=== PATIENT | female | born 1975 | race Caucasian/White ===

== ENCOUNTER 2020-10-02 10:35 | Outpatient (REF) | payer BC, SELFPAY ==
[2020-10-02 14:10] LABS: Hemoglobin 14.2 g/dl (12.0-16.0); Mean Corpuscular HGB Conc 33.8 g/dl (31.0-35.0); Mean Corpuscular Hemoglobin 29.9 pg (27.0-33.0); Mean Corpuscular Volume 88.4 fL (80-98); Mean Platelet Volume 11.4 fL (9.4-12.3); Platelet Count 313 X10*3/uL (160-400); Red Blood Count 4.75 X10*6/uL (4.20-5.50); Red Cell Distribution Width 12.4 % (11.0-16.0); White Blood Count 9.2 X10*3/uL (4.8-10.8)
[2020-10-02 14:32] LABS: Alanine Aminotransferase 13 U/L (0-31); Albumin Level 4.7 g/dL (3.5-5.0); Alkaline Phosphatase 62 U/L (39-117); Anion Gap 13 (12-20); Aspartate Amino Transferase 18 U/L (5-31); Bilirubin Total 0.7 mg/dL (0.0-1.0); Blood Urea Nitrogen 12 mg/dL (9-16); Calcium 9.1 mg/dL (8.4-10.2); Carbon Dioxide 24 mmol/L (22-29); Chloride 106 mmol/L (96-108); Cholesterol 191 mg/dL; Estimated Glomerular Filt Rate > 60; Glucose Fasting 88 mg/dL (60-99); HDL Cholesterol 42 mg/dL; LDL Cholesterol Calculated 119 mg/dl; Potassium 4.5 mmol/l (3.3-5.1); Sodium 138 mmol/L (135-145); Total Protein 7.6 g/dL (6.5-8.0); Triglycerides 154 mg/dL
[2020-10-02 14:38] LABS: Glucose Urine UA NEG (NEG); Leukocyte Esterase Urine 2+ (NEG); Nitrite Urine NEG (NEG); PH 6.5 (5.0-8.0); Urine Blood TRACE (NEG); Urine Ketones NEG (NEG); Urine Protein NEG (NEG-TRACE)
[2020-10-02 14:42] LABS: Appearance Urine CLOUDY; Color Urine YELLOW
[2020-10-02 14:52] LABS: TSH reflex Free T4 4.82 mIU/mL (0.32-4.0)
[2020-10-02 15:09] LABS: RBC Urine 0 /HPF (0); WBC Urine 50-75 /HPF (0-4)
[2020-10-02 15:10] LABS: Bacteria Urine 2+ /LPF; Mucus Urine 2+ /LPF; Squamous Epithelial Cell Urine 2+ /LPF; WBC Clumps Urine NOTED
[2020-10-02 15:57] LABS: Free T4 (Free Thyroxine) 1.08 ng/dL (0.71-1.85)
== END 2020-10-02 10:36 | disposition home or self-care (01) ==
LOC: HO.HMGCLDS 10:35
PROVIDERS: PCP Internal Medicine; Visit Provider Internal Medicine
DX: Z00.00 Encounter for general adult medical examination without abnormal findings (principal)
CPT/HCPCS: 36415; 80053; 80061; 81001; 84439; 84443; 85027

== ENCOUNTER 2021-10-03 09:38 | Outpatient (REF) | payer BC, SELFPAY ==
[2021-10-03 11:31] LABS: Appearance Urine HAZY; Color Urine YELLOW; Glucose Urine UA NEG (NEG); Leukocyte Esterase Urine NEG (NEG); Nitrite Urine NEG (NEG); Urine Blood NEG (NEG); Urine Ketones NEG (NEG); Urine Protein NEG (NEG-TRACE)
[2021-10-03 11:35] LABS: Hematocrit 39.7 % (37.0-47.0); Hemoglobin 13.6 g/dl (12.0-16.0); Mean Corpuscular HGB Conc 34.3 g/dl (31.0-35.0); Mean Corpuscular Hemoglobin 29.4 pg (27.0-33.0); Mean Corpuscular Volume 85.7 fL (80.0-98.0); Mean Platelet Volume 11.6 fL (9.4-12.3); Platelet Count 312 X10*3/uL (160-400); Red Blood Count 4.63 X10*6/uL (4.20-5.50); Red Cell Distribution Width 12.3 % (11.0-16.0); White Blood Count 8.1 X10*3/uL (4.8-10.8)
[2021-10-03 11:53] LABS: Amorphous Sediment Urine 2+ /LPF; Squamous Epithelial Cell Urine 1+ /LPF
[2021-10-03 11:54] LABS: RBC Urine 0-2 /HPF (0); WBC Urine 0-2 /HPF (0-4)
[2021-10-03 12:09] LABS: Alanine Aminotransferase 13 U/L (0-31); Albumin Level 4.4 g/dL (3.5-5.0); Alkaline Phosphatase 67 U/L (39-117); Anion Gap 11 (12-20); Aspartate Amino Transferase 14 U/L (5-31); Bilirubin Total 0.9 mg/dL (0.0-1.0); Blood Urea Nitrogen 11 mg/dL (9-16); Calcium 9.6 mg/dL (8.4-10.2); Carbon Dioxide 24 mmol/L (22-29); Chloride 107 mmol/L (96-108); Cholesterol 182 mg/dL; Estimated Glomerular Filt Rate > 60; Glucose Fasting 96 mg/dL (60-99); HDL Cholesterol 43 mg/dL; LDL Cholesterol Calculated 119 mg/dl; Potassium 4.3 mmol/L (3.3-5.1); Sodium 138 mmol/L (135-145); Total Protein 7.1 g/dL (6.5-8.0); Triglycerides 103 mg/dL
[2021-10-03 12:11] LABS: TSH reflex Free T4 2.71 uIU/mL (0.32-4.0); Vitamin D 25-OH Total 19.6 ng/mL (>30)
[2021-10-03 12:25] LABS: Folate 14.7 ng/mL (> or = 4.0); Vitamin B12 348 pg/mL (200-900)
== END 2021-10-03 09:39 | disposition home or self-care (01) ==
LOC: HO.HMGCLDS 09:38
PROVIDERS: PCP Internal Medicine; Visit Provider Internal Medicine
DX: Z00.00 Encounter for general adult medical examination without abnormal findings (principal); E03.9 Hypothyroidism, unspecified
CPT/HCPCS: 36415; 80053; 80061; 81001; 82306; 82607; 82746; 84443; 85027

== ENCOUNTER 2022-10-04 09:23 | Outpatient (REF) | payer BC, SELFPAY ==
[2022-10-04 11:17] LABS: MANUAL DIFF FLAG NO
[2022-10-04 11:26] LABS: Basophils Percent Auto 0.3 % (0-2); Eosinophils Percent Auto 0.3 % (0-4); Hematocrit 37.8 % (37.0-47.0); Hemoglobin 12.8 g/dl (12.0-16.0); Imm Gran Abs Auto 0.01 X10*3/uL (0.00-0.03); Imm Gran Pct Auto 0.3 % (0.0-0.4); Lymphocytes Absolute Auto 1.5 X10*3/uL (1.2-4.9); Lymphocytes Percent Auto 41.3 % (20-40); Mean Corpuscular HGB Conc 33.9 g/dl (31.0-35.0); Mean Corpuscular Volume 85.5 fL (80.0-98.0); Mean Platelet Volume 12.4 fL (9.4-12.3); Monocytes Absolute Auto 0.5 X10*3/uL (0.1-1.2); Monocytes Percent Auto 12.8 % (2-11); Neutrophils Absolute Auto 1.6 x10*3/uL (2.0-8.3); Platelet Count 216 X10*3/uL (160-400); Red Blood Count 4.42 X10*6/uL (4.20-5.50); White Blood Count 3.5 X10*3/uL (4.8-10.8)
[2022-10-04 11:27] LABS: Appearance Urine Cloudy; Color Urine Yellow; Glucose Urine UA Negative (Negative); Leukocyte Esterase Urine Moderate (2+) (Negative); Nitrite Urine Negative (Negative); Specific Gravity - Urine 1.025 (1.005-1.025); UMIC TRIGGER UA YES; Urine Blood Large (3+) (Negative); Urine Ketones Negative (Negative); Urine Protein Trace mg/dL (Neg-Trace)
[2022-10-04 11:30] LABS: Bacteria Urine None Seen (None Seen); Hyaline Casts Urine 0-2 /LPF (0-2); RBC Urine >20 /HPF (0-2); WBC Urine >50 /HPF (0-5)
[2022-10-04 11:49] LABS: Alanine Aminotransferase 24 U/L (0-31); Albumin Level 4.2 g/dL (3.5-5.0); Alkaline Phosphatase 59 U/L (39-117); Anion Gap 12 (12-20); Aspartate Amino Transferase 24 U/L (5-31); Bilirubin Total 0.6 mg/dL (0.0-1.0); Blood Urea Nitrogen 11 mg/dL (9-16); Calcium 8.7 mg/dL (8.4-10.2); Carbon Dioxide 20 mmol/L (22-29); Chloride 111 mmol/L (96-108); Cholesterol 153 mg/dL; Estimated Glomerular Filt Rate > 60; Glucose Fasting 94 mg/dL (60-99); HDL Cholesterol 39 mg/dL; LDL Cholesterol Calculated 94 mg/dl; Potassium 4.1 mmol/L (3.3-5.1); Sodium 139 mmol/L (135-145); Total Protein 6.6 g/dL (6.5-8.0); Triglycerides 103 mg/dL
[2022-10-04 12:06] LABS: TSH reflex Free T4 1.61 uIU/mL (0.32-4.0); Vitamin D 25-OH Total 24.3 ng/mL (>30)
== END 2022-10-04 09:24 | disposition home or self-care (01) ==
LOC: HO.HMGCLDS 09:23
PROVIDERS: PCP Internal Medicine; Visit Provider Internal Medicine
DX: Z00.00 Encounter for general adult medical examination without abnormal findings (principal); I10 Essential (primary) hypertension; E03.9 Hypothyroidism, unspecified
CPT/HCPCS: 36415; 80053; 80061; 81001; 82306; 84443; 85025

== ENCOUNTER 2023-04-07 09:37 | Outpatient (AMB) | payer BC, SELFPAY ==
[2023-04-07 09:42] VITALS: BP 140/85; PULSE 77; O2SAT 98; BMI 36.0
--- NOTE | 2023-04-07 09:42 | A.OFFPC_ITS ---
Vital Signs 04/07/23 09:42 Height 5 ft 7 in Weight 230 lb BMI 36.0 BP 140/85 H Blood Pressure Location Rt brachial Position Sitting Pulse 77 Pulse Source Pulse Oximeter Pulse Oximetry (%) 98 Oxygen Delivery Method Room Air Intake Visit Reasons: 6 month follow up HTN Intake Note: Pt is here today for 6 months follow up visit on HTN. Allergies No Known Allergies Allergy (Verified 04/07/23 09:46) Medication List - Last Reconciled 04/07/23 by Corin Rea MD amlodipine-benazepril 5-20 mg (Lotrel) 1 cap PO DAILY Synthroid (levothyroxine) 112 mcg PO DAILY NS Tobacco use date assessed: 04/07/23 Dental Screening Dental Screen Date: 04/07/23 Did you have a dental visit in the last 12 months?: Yes Did you have a dental problem in the last 6 months where you did not have access to dental care?: No Was dental information given to patient?: Patient has dentist HPI 6 month follow up HTN HPI Details Pt presents for f/u HTN and hypothyroid. Patient complains of intermittent chest pain left axilla region and dyspnea on exertion when walking. Symptoms resolved with the rest. Patient denies chest pain at night PND orthopnea palpitations. [facility] Medical History Annual physical exam HTN (hypertension) Hypothyroidism Normal Pap smear Surgical History No pertinent past surgical history Family History Father No problems noted. Mother No problems noted. Social History Household Members Other:: Housing: House Alcohol intake: never Patient Tobacco Use Status: Never used Tobacco e-Cigarette/Vaping Use: Never Used Current occupational status: employed Cognitive needs: No Hearing needs: No Vision needs: No Questionnaire Thrive Questionnaire Date Thrive assessed: 10/07/22 ENRIQUE-7 AMB Questionnaire ENRIQUE-7 Date ENRIQUE - 7 assessed: 10/07/22 Source: Developed by Drs. Sancho Hull, Alanna Kong, Oneil Heard and colleagues, with an educational shell from [employer]. Review of Systems Const All systems reviewed & are unremarkable except as noted in HPI and below Reports no additional complaints Eyes Reports no additional complaints ENT Reports no additional complaints Card Reports no additional complaints Resp Reports no additional complaints GI Reports no additional complaints Reports no additional complaints Physical exam (Primary Care) Vital Signs: Last Vital Signs Pulse 77 04/07/23 09:42 BP 118/76 04/07/23 09:42 Pulse Ox 98 04/07/23 09:42 Oxygen Delivery Method Room Air 04/07/23 09:42 BMI result Body Mass Index 36.0 Tobacco/Smoking Status: Tobacco use Status Tobacco use date assessed 04/07/23 04/07/23 09:50 Patient Tobacco Use Status Never used Tobacco 04/07/23 09:50 e-Cigarette/Vaping Use Never Used 04/07/23 09:50 Thrive Assessment: Date of Thrive Assessment Date Thrive assessed 10/07/22 04/07/23 09:50 Const General: no acute distress HENMT Head: Yes normal to inspection Ears: hearing grossly normal bilaterally Face and sinus: Yes normal facial exam Mouth: Normal oral and palatal mucosa present Throat: Yes posterior oropharynx normal Eyes General: appearance normal, both eyes and all related structures Neck Neck: Yes no lymphadenopathy and Yes supple Resp Effort & Inspection: normal respiratory effort Auscultation: clear to auscultation bilaterally Cardio Rhythm: regular rhythm Heart sounds: S1 normal heart sound present and S2 normal heart sound present GI Inspection: Yes normal to inspection Palpation (GI): Soft to palpation Percussion: Yes normal to percussion Auscultation: normal bowel sounds Assessment and Plan Assessment & Plan (1) Hypothyroidism: Code(s): E03.9 - Hypothyroidism, unspecified Plan: cont Synthyroid (2) HTN (hypertension): Code(s): I10 - Essential (primary) hypertension Plan: increase Amlodipine/benazepril 5/40 and check BMP and TSH in 1 week (3) Exertional chest pain: Code(s): R07.9 - Chest pain, unspecified Plan: EKG showed NSR, no ST-T changes, refer for stress test and f/u in 5 weeks Orders: Orders TSH reflex Free T4 1 Week E03.9 - Hypothyroidism, unspecified Basic Metabolic Panel 1 Week I10 - Essential (primary) hypertension CA stress test Today R07.9 - Chest pain, unspecified UA w Microscopic 1 Week I10 - Essential (primary) hypertension Medications: New amlodipine-benazepril 5-40 mg 1 cap PO DAILY 90 caps 0RF Discontinued amlodipine-benazepril 5-20 mg (Lotrel) Discontinued Reason: Doctor's Order 1 cap PO DAILY 90 caps 3RF Coding Level of Care Code Est Pt Level 4 (35949) Diagnoses Hypothyroidism E03.9 HTN (hypertension) I10 Exertional chest pain R07.9
== END 2023-04-07 11:22 | disposition home or self-care (01) ==
PROVIDERS: Visit Provider Internal Medicine
DX: E03.9 Hypothyroidism, unspecified (principal); I10 Essential (primary) hypertension; R07.9 Chest pain, unspecified
CPT/HCPCS: 99214

== ENCOUNTER 2023-04-30 12:41 | Outpatient (REF) | payer BC, SELFPAY ==
[2023-04-30 16:52] LABS: Anion Gap 11 (12-20); Blood Urea Nitrogen 11 mg/dL (9-16); Calcium 9.6 mg/dL (8.4-10.2); Carbon Dioxide 23 mmol/L (22-29); Chloride 109 mmol/L (96-108); Estimated Glomerular Filt Rate > 60; Glucose Random 79 mg/dL (60-115); Potassium 4.2 mmol/L (3.3-5.1); Sodium 139 mmol/L (135-145)
[2023-04-30 16:59] LABS: TSH reflex Free T4 3.91 uIU/mL (0.32-4.0)
[2023-04-30 17:59] LABS: Appearance Urine Cloudy; Color Urine Yellow; Glucose Urine UA Negative (Negative); Leukocyte Esterase Urine Small (1+) (Negative); Nitrite Urine Negative (Negative); PH 7.5 (5.0-9.0); Specific Gravity - Urine 1.015 (1.005-1.025); UMIC TRIGGER UA YES; Urine Blood Negative (Negative); Urine Ketones Negative (Negative); Urine Protein Negative (Neg-Trace)
[2023-04-30 18:15] LABS: Bacteria Urine None Seen (None Seen); Hyaline Casts Urine 0-2 /LPF (0-2); RBC Urine 0-2 /HPF (0-2); WBC Urine 0-5 /HPF (0-5)
== END 2023-04-30 12:42 | disposition home or self-care (01) ==
LOC: HO.HMGCLDS 12:41
PROVIDERS: PCP Internal Medicine; Visit Provider Internal Medicine
DX: E03.9 Hypothyroidism, unspecified (principal); I10 Essential (primary) hypertension
CPT/HCPCS: 36415; 80048; 81001; 84443

== ENCOUNTER → 2023-06-15 13:54 | Outpatient (REF) | payer BC, SELFPAY ==
--- NOTE | 2023-06-15 13:56 | CA_ITS ---
Acquisition Time: 2023-06-15 14:05:08 Total Exercise Time: 00:09:41 Test Indications: CP Medications: SEE H Protocol: FUENTES Max HR: 153 BPM 88% of Pred: 172 BPM Max BP: 204/084 mmHG Max Work Load: 11.2 METS Exercise stress test exercuse 9 min 41 sec of Fuentes protocol achieving 88% MPHR, without anginal symptoms, without arrhythmias, with exaggarated response to exercise BP baseline 138/88 , max BP 204/84, without EKG chnages. Test reviewed with Dr. Hayes. Referred By: Corin Rea Overread By: Mamta Mays
== END ==
LOC: HO.CARD 13:54
PROVIDERS: PCP Internal Medicine; Visit Provider Internal Medicine
DX: R07.9 Chest pain, unspecified (principal)
CPT/HCPCS: 93017

== ENCOUNTER → 2023-06-15 13:56 | Outpatient (BNV) | payer BC, SELFPAY | PROVIDERS: PCP Internal Medicine; Visit Provider Nurse Practitioner | DX: R07.9 Chest pain, unspecified (principal) | CPT/HCPCS: 93016; 93018 ==

== ENCOUNTER 2023-10-03 09:42 | Outpatient (REF) | payer BC, SELFPAY ==
[2023-10-03 11:29] LABS: MANUAL DIFF FLAG NO
[2023-10-03 11:40] LABS: Basophils Absolute Auto 0.1 X10*3/uL (0.0-0.2); Basophils Percent Auto 0.7 % (0-2); Eosinophils Absolute Auto 0.2 X10*3/uL (0.0-0.4); Eosinophils Percent Auto 2.5 % (0-4); Hematocrit 38.8 % (37.0-47.0); Hemoglobin 12.9 g/dl (12.0-16.0); Imm Gran Abs Auto 0.02 X10*3/uL (0.00-0.03); Imm Gran Pct Auto 0.2 % (0.0-0.4); Lymphocytes Absolute Auto 2.4 X10*3/uL (1.2-4.9); Lymphocytes Percent Auto 27.3 % (20-40); Mean Corpuscular HGB Conc 33.2 g/dl (31.0-35.0); Mean Corpuscular Volume 81.2 fL (80.0-98.0); Mean Platelet Volume 11.5 fL (9.4-12.3); Monocytes Absolute Auto 0.6 X10*3/uL (0.1-1.2); Monocytes Percent Auto 7.3 % (2-11); Neutrophils Absolute Auto 5.4 x10*3/uL (2.0-8.3); Platelet Count 302 X10*3/uL (160-400); Red Blood Count 4.78 X10*6/uL (4.20-5.50); Red Cell Distribution Width 13.2 % (11.0-16.0); White Blood Count 8.7 X10*3/uL (4.8-10.8)
[2023-10-03 11:55] LABS: Alanine Aminotransferase 15 U/L (0-31); Albumin Level 4.3 g/dL (3.5-5.0); Alkaline Phosphatase 66 U/L (39-117); Anion Gap 12 (12-20); Aspartate Amino Transferase 18 U/L (5-31); Bilirubin Total 0.7 mg/dL (0.0-1.0); Blood Urea Nitrogen 10 mg/dL (9-16); Calcium 9.4 mg/dL (8.4-10.2); Carbon Dioxide 26 mmol/L (22-29); Chloride 105 mmol/L (96-108); Cholesterol 189 mg/dL (<200); Estimated Glomerular Filt Rate > 60; Glucose Fasting 93 mg/dL (60-99); HDL Cholesterol 43 mg/dL (>40); LDL Cholesterol Calculated 118 mg/dL (<100); Potassium 4.1 mmol/L (3.3-5.1); Sodium 139 mmol/L (135-145); Total Protein 7.4 g/dL (6.5-8.0); Triglycerides 144 mg/dL (<150)
[2023-10-03 12:13] LABS: TSH reflex Free T4 4.89 uIU/mL (0.32-4.0); Vitamin D 25-OH Total 65.7 ng/mL (>30)
[2023-10-03 12:48] LABS: Free T4 (Free Thyroxine) 0.98 ng/dL (0.71-1.85)
== END 2023-10-03 09:43 | disposition home or self-care (01) ==
LOC: HO.HMGCLDS 09:42
PROVIDERS: PCP Internal Medicine; Visit Provider Internal Medicine
DX: Z00.00 Encounter for general adult medical examination without abnormal findings (principal); E03.9 Hypothyroidism, unspecified; I10 Essential (primary) hypertension
CPT/HCPCS: 36415; 80053; 80061; 82306; 84439; 84443; 85025

== ENCOUNTER 2023-10-08 11:28 | Outpatient (AMB) | payer BC, SELFPAY ==
[2023-10-08 11:29] VITALS: BP 124/78; PULSE 87; O2SAT 96; BMI 38.5
--- NOTE | 2023-10-08 11:29 | A.OFFPC_ITS ---
Vital Signs 10/08/23 11:29 10/08/23 12:41 Height 5 ft 7 in Weight 246 lb BMI 38.5 BP 124/78 140/85 H Blood Pressure Location Lt brachial Rt brachial Position Sitting Sitting Pulse 87 Pulse Source Pulse Oximeter Pulse Oximetry (%) 96 Oxygen Delivery Method Room Air Intake Visit Reasons: Annual PE Intake Note: Pt is here today for PE. Allergies No Known Allergies Allergy (Verified 10/08/23 11:33) Medication List - Last Reconciled 10/08/23 by Corin Rea MD amlodipine-benazepril 5-40 mg 1 cap PO DAILY Synthroid (levothyroxine) 125 mcg PO DAILY NS Tobacco use date assessed: 10/08/23 Dental Screening Dental Screen Date: 10/08/23 Did you have a dental visit in the last 12 months?: Yes Did you have a dental problem in the last 6 months where you did not have access to dental care?: No Was dental information given to patient?: Patient has dentist HPI Annual PE HPI Details Pt presents for PE. Patient has been taking amlodipine with benazepril 5/20 instead of 5/40 and has been monitor her blood pressure at home with the readings of 120/80. [facility] Medical History (Updated 10/08/23 @ 12:46 by Corin Rea MD) Normal Pap smear Annual physical exam Hypothyroidism HTN (hypertension) Surgical History No pertinent past surgical history Family History Father No problems noted. Mother No problems noted. Social History Household Members Other:: Housing: House Alcohol intake: never Patient Tobacco Use Status: Never used Tobacco e-Cigarette/Vaping Use: Never Used Current occupational status: employed Cognitive needs: No Hearing needs: No Vision needs: No Questionnaire PHQ-9 Over the last 2 weeks, how often have you been bothered by any of the following problems? 1. Little interest or pleasure in doing things: not at all 2. Feeling down, depressed, or hopeless: not at all 3. Trouble falling or staying asleep, or sleeping too much: not at all 4. Feeling tired or having little energy: not at all 5. Poor appetite or overeating: not at all 6. Feeling bad about yourself - or that you are a failure or have let yourself or your family down: not at all 7. Trouble concentrating on things, such as reading the newspaper or watching television: not at all 8. Moving or speaking so slowly that other people could have noticed. Or the opposite - being so fidgety or restless that you have been moving around a lot more than usual: not at all 9. Thoughts that you would be better off or of hurting yourself in some way: not at all Total score: 0 Depression Screening Interpretation: Negative Depression Screening Done: Yes Source: Developed by Drs. Sancho Hull, Alanna Kong, Oneil Heard and colleagues, with an educational shell from [employer]. Thrive Questionnaire Date Thrive assessed: 10/08/23 I am a: Patient What is your living situation today?: I have a steady place to live Within the past 12 months, did the food you bought not last and you didn't have the money to get more?: Never true Within the past 12 months, did you worry whether your food would run out before you got money to buy more?: Never true Do you have trouble paying for medicines?: No Do you have trouble getting transportation to medical appointments?: No Do you have trouble paying your heating and electricity bill?: No Do you have trouble taking care of your child, family member or friend?: No Do you have trouble with day-to-day activities such as bathing, preparing meals, shopping, managing finances, etc.?: No Are you currently unemployed and looking for a job?: No Are you interested in more education?: No Please select the resources that you would like help with: None THRIVE Score: 0 AUDIT C Alcohol Use Questionnaire (AUDIT-C) 1. How often do you have a drink containing alcohol?: Never 3. How often do you have six or more drinks on one occasion?: Never Total Score: 0 ENRIQUE-7 AMB Questionnaire ENRIQUE-7 Date ENRIQUE - 7 assessed: 10/08/23 Feeling nervous, anxious, or on edge: 0 = Not at all Not being able to stop or control worryin = Not at all Worrying too much about different things: 0 = Not at all Trouble relaxin = Not at all Being so restless that it is hard to sit still: 0 = Not at all Becoming easily annoyed or irritable: 0 = Not at all Feeling afraid as if something awful might happen: 0 = Not at all Total ENRIQUE-7 score (0-4 normal; 5-9 mild; 10-14 moderate; 15-21 severe): 0 Source: Developed by Drs. Sancho Hull, Alanna Kong, Oneil Heard and colleagues, with an educational shell from [employer]. Review of Systems Const All systems reviewed & are unremarkable except as noted in HPI and below Reports no additional complaints Eyes Reports no additional complaints ENT Reports no additional complaints Card Reports no additional complaints Resp Reports no additional complaints GI Reports no additional complaints Reports no additional complaints Musc Reports no additional complaints Physical exam (Primary Care) Vital Signs: Last Vital Signs Pulse 87 10/08/23 11:29 BP 124/78 10/08/23 11:29 Pulse Ox 96 10/08/23 11:29 Oxygen Delivery Method Room Air 10/08/23 11:29 BMI result Body Mass Index 38.5 Tobacco/Smoking Status: Tobacco use Status Tobacco use date assessed 10/08/23 10/08/23 11:41 Patient Tobacco Use Status Never used Tobacco 10/08/23 11:41 e-Cigarette/Vaping Use Never Used 10/08/23 11:41 PHQ-9: PHQ-9 Score PHQ-9: Total score 0 10/08/23 11:41 Depression Screening Interpretation: Negative Thrive Assessment: Date of Thrive Assessment Date Thrive assessed 10/08/23 10/08/23 11:41 Const General: no acute distress HENMT Head: Yes normal to inspection General nose exam: Normal external nose present Mouth: Normal oral and palatal mucosa present Throat: Yes posterior oropharynx normal Eyes General: appearance normal, both eyes and all related structures Neck Neck: Yes no lymphadenopathy and Yes supple Chest Other: 10 x 8 cm subcutaneous soft palpable mobile mass below left breast, no tender Resp Effort & Inspection: normal respiratory effort Auscultation: clear to auscultation bilaterally Cardio Rhythm: regular rhythm Heart sounds: S1 normal heart sound present and S2 normal heart sound present GI Inspection: Yes normal to inspection Palpation (GI): Soft to palpation Percussion: Yes normal to percussion Auscultation: normal bowel sounds Assessment and Plan Assessment & Plan (1) Lipoma of anterior chest wall: Code(s): D17.1 - Benign lipomatous neoplasm of skin and subcutaneous tissue of trunk Plan: Obtain ultrasound (2) Sleep apnea: Code(s): G47.30 - Sleep apnea, unspecified Plan: Obtain sleep study (3) HTN (hypertension): Code(s): I10 - Essential (primary) hypertension Plan: Patient was advised to take amlodipine with benazepril 5/40 and follow-up in 7 weeks (4) FRANCIS (dyspnea on exertion): Code(s): R06.09 - Other forms of dyspnea Plan: Obtain echocardiogram (5) Hx of screening mammography: Comment: 2023 [facility] Code(s): Z92.89 - Personal history of other medical treatment (6) Annual physical exam: Code(s): Z00.00 - Encounter for general adult medical examination without abnormal findings Plan: Well-balanced diet regular physical activity weight loss discussed with the patient (7) 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 (8) Hypothyroidism: Code(s): E03.9 - Hypothyroidism, unspecified Plan: Increase Synthroid to 125 mcg, check TSH in 6 weeks (9) Colonoscopy refused: Comment: 10/07 negative Cologuard 10/06 Code(s): Z53.20 - Procedure and treatment not carried out because of patient's decision for unspecified reasons Orders: Orders RT home sleep study Today G47.30 - Sleep apnea, unspecified CA echo transthoracic complete Today I10 - Essential (primary) hypertension, R06.09 - Other forms of dyspnea Basic Metabolic Panel 6 Weeks E03.9 - Hypothyroidism, unspecified, I10 - Essential (primary) hypertension US chest Today D17.1 - Benign lipomatous neoplasm of skin and subcutaneous tissue of trunk TSH reflex Free T4 6 Weeks E03.9 - Hypothyroidism, unspecified, I10 - Essential (primary) hypertension Medications: New Synthroid (levothyroxine) 125 mcg PO DAILY 90 tabs 3RF NS amlodipine-benazepril 5-20 mg 1 cap PO DAILY 90 caps 3RF Discontinued amlodipine-benazepril 5-40 mg Discontinued Reason: Doctor's Order 1 cap PO DAILY 90 caps 0RF Synthroid (levothyroxine) Discontinued Reason: Doctor's Order 112 mcg PO DAILY 90 tabs 3RF NS Coding Level of Care Code New Pt Prev Care 40-64y(51298) Diagnoses Lipoma of anterior chest wall D17.1 Sleep apnea G47.30 HTN (hypertension) I10 FRANCIS (dyspnea on exertion) R06.09 Hx of screening mammography Z92.89 Annual physical exam Z00.00 Normal Pap smear Z12.4 Hypothyroidism E03.9 Colonoscopy refused Z53.20
[2023-10-08 12:41] VITALS: BP 140/85
== END 2023-10-08 12:45 | disposition home or self-care (01) ==
PROVIDERS: PCP Internal Medicine; Visit Provider Internal Medicine
DX: D17.1 Benign lipomatous neoplasm of skin and subcutaneous tissue of trunk (principal); G47.30 Sleep apnea, unspecified; I10 Essential (primary) hypertension; R06.09 Other forms of dyspnea; Z92.89 Personal history of other medical treatment; Z00.00 Encounter for general adult medical examination without abnormal findings; Z12.4 Encounter for screening for malignant neoplasm of cervix; E03.9 Hypothyroidism, unspecified; Z53.20 Procedure and treatment not carried out because of patient's decision for unspecified reasons
CPT/HCPCS: 99386; 99396

== ENCOUNTER 2023-10-08 13:42 | Outpatient (REF) | payer BC, SELFPAY ==
--- NOTE | ~2023-10-08 | US_ITS ---
EXAMINATION: US CHEST CLINICAL INFORMATION: Palpable soft tissue mass below left breast region. Evaluate for lipoma. COMPARISON: None available. TECHNIQUE: Sonographic imaging performed in area of palpable concern using a linear 12 MHz transducer. FINDINGS: The images are acquired of subcutaneous tissues in region of left upper quadrant. In the region of palpable concern, there is a circumscribed 5.1 x 3.1 x 5.7 cm mass that is isoechoic to adipose tissue and has thin parallel septa. This has the typical imaging appearance of a lipoma. No calcification or cystic change within the lesion. Color Doppler images show no abnormal vascularity in the area. US/US chest IMPRESSION: 5.1 x 3.1 x 5.7 cm lipoma within subcutaneous tissues in the area of concern.
== END 2023-10-08 13:43 | disposition home or self-care (01) ==
LOC: HO.HMGCX 13:42
PROVIDERS: PCP Internal Medicine; Visit Provider Internal Medicine
DX: D17.1 Benign lipomatous neoplasm of skin and subcutaneous tissue of trunk (principal)
CPT/HCPCS: 76604

== ENCOUNTER → 2024-01-04 15:42 | Outpatient (REF) | payer BC, SELFPAY ==
--- NOTE | 2024-01-04 15:47 | CA_ITS ---
Transthoracic Echocardiogram Patient (Last, First, Middle): Ebony Joregnsen, Gender: Female Date of : 1975 Age: 48 Procedure Date: 01/04/2024 Procedure Type: Transthoracic Echocardiogram Location: OP Height: 172.72 cm Weight: 83.92 kg BSA: 1.98 m2 Heart Rate: bpm BP: 132 / 80 mmHg Investor Relations Analyst: Referring MD: Corin Rea MD Symptoms: I10 - Essential (primary) hypertension Study Quality: Fair ECG Rhythm: Sinus Conclusions: - 1. Normal LV ejection fraction 60-65% with upper limits of normal wall thickness 2. Mildly dilated left atrium 3. Normal cardiac valvular Dopplers 4. Normal RV systolic pressure 5. No gross pericardial effusion Findings Left Ventricle Normal left ventricular size, thickness, and systolic function. The visually estimated ejection fraction is between 60-65%. Spectral Doppler is indicative of a normal filling pattern. Right Ventricle Normal right ventricular cavity size and systolic function. Atria The left atrium is mildly dilated. There is no evidence of interatrial shunt. The right atrium is normal in size. Aortic Valve Normal aortic valve structure and function. There is no aortic valve stenosis. There is no aortic valve regurgitation. Mitral Valve Normal mitral valve structure and function. There is trace mitral valve regurgitation. There is no mitral valve stenosis. Pulmonic Valve The pulmonic valve is likely normal. There is trace pulmonic valve regurgitation. Tricuspid Valve Normal tricuspid valve structure. There is trace tricuspid valve regurgitation. The right ventricular systolic pressure is normal. The right ventricular systolic pressure is 18 mmHg. Normal right atrial pressure. There is no evidence of pulmonary hypertension. Great Vessels All visible segments of the aorta are normal in size. The pulmonary artery was not well visualized. There is no dilatation of the ascending aorta measuring 3.20 cm. Venous The inferior vena cava is normal in size and collapses greater than 50% with inspiration. Pericardium/Pleural There is no evidence of pericardial effusion. Prior Study Comparison No prior study available for comparison. Measurements 2D Linear Measurements IVSd: 1.14 0.6-0.9/0.6-1.0 cm LVIDd: 4.65 3.9-5.3/4.2-5.9 cm LVIDd Index: 2.35 2.4-3.2/2.2-3.1 cm/m2 LVIDs: 2.95 2.0-3.6 cm LVPWd: 1.15 0.7-1.1 cm Ao Root: 3.30 2.1-3.5 cm LA Diam: 3.90 2.7-3.8/3.0-4.0 cm LAIDs Index: 1.97 1.5-2.3 cm/m2 LV Mass: 243.06 67-162/88-224 g LV Mass Index: 122.76 43-95/49-115 g/m2 LVOT Diam: 2.30 3.0+(-)1.3 cm 2D Systolic Function EF 4C: 56.00 >55% EF 2C: 64.00 >55% EF BiP: 60.80 >55% Mitral Valve MV Pk E: 0.86 MV PK A: 0.83 MV Decel Time: 193.00 E/A: 1.00 E'Lateral: 8.49 E'Medial: 11.30 E/E' Med: 7.60 E/E' Lat: 10.10 PHT: 56.00 MVA PHT: 3.93 Decel [place]: 4.45 Aortic Valve AoV Pk Campos: 1.51 AoV Mn Campos: 0.91 AoV VTI: 0.33 AoV Pk Grad: 9.00 Aov Mn Grad: 4.00 JOSE Cont.VTI: 3.28 LVOT LVOT Pk Campos: 1.09 LVOT Mn Campos: 0.72 LVOT VTI: 0.26 LVOT Pk Grad: 5.00 LVOT Mn Grad: 2.00 LVOT Diam: 2.30 LVOT Area: 4.15 Diastolic Function MV Pk E: 0.86 MV Pk A: 0.83 E/A: 1.00 E'Medial: 11.30 E/E' Med: 7.60 E' Laterial: 8.49 E/E' Lat: 10.10 Right Ventricle TAPSE (mm): 29.00 Tricuspid Valve TR Pk Campos: 1.91 TR Pk Grad: 15.00 RA Press: 3.00 RVSP: 18.00 Great Vessels Aorta Ao Root-2D: 3.30 2.0-3.7 cm Ao Asc: 3.20 2.1-3.4 cm Pulmonary Valve PV Pk Campos: 1.03 Peak PV Grad: 4.00 Updated in Other Vendor System with Status of Final Terrance Morrow MD electronically signed on 01/05/2024 11:23:45 AM with status of Final
== END ==
LOC: HO.CARD 15:42
PROVIDERS: PCP Internal Medicine; Visit Provider Internal Medicine
DX: I10 Essential (primary) hypertension (principal); R06.09 Other forms of dyspnea
CPT/HCPCS: 93306

== ENCOUNTER → 2024-01-04 15:47 | Outpatient (BNV) | payer BC, SELFPAY | PROVIDERS: PCP Internal Medicine; Visit Provider Internal Medicine Cardiovascular Disease | DX: I10 Essential (primary) hypertension (principal); I34.0 Nonrheumatic mitral (valve) insufficiency | CPT/HCPCS: 93306 ==

== ENCOUNTER 2024-10-28 12:59 | Outpatient (AMB) | payer BC, SELFPAY ==
[2024-10-28 13:00] VITALS: BP 128/76; PULSE 85; RESP 18; TEMP 37; O2SAT 97; BMI 36.3
--- NOTE | 2024-10-28 13:00 | A.OFFPC_ITS ---
Vital Signs 10/28/24 13:00 Height 5 ft 7 in Weight 232 lb BMI 36.3 BP 128/76 Blood Pressure Location Lt brachial Position Sitting Respiration 18 Pulse 85 Pulse Source Pulse Oximeter Temp 98.6 F Temp Source Oral Pulse Oximetry (%) 97 Oxygen Delivery Method Room Air Intake Visit Reasons: Annual PE Intake Note: Pt is here today for PE. Allergies No Known Allergies Allergy (Verified 10/28/24 13:01) Medication List - Last Reconciled 10/28/24 by Corin Rea MD amlodipine-benazepril 5-20 mg 1 cap PO DAILY Synthroid (levothyroxine) 125 mcg PO DAILY NS Tobacco use date assessed: 10/28/24 Dental Screening Dental Screen Date: 10/28/24 Did you have a dental visit in the last 12 months?: Yes Did you have a dental problem in the last 6 months where you did not have access to dental care?: No Was dental information given to patient?: Patient has dentist HPI Annual PE HPI Details Pt presents for PE. [facility] Medical History Normal Pap smear Annual physical exam Hypothyroidism HTN (hypertension) Surgical History No pertinent past surgical history Family History Father No problems noted. Mother No problems noted. Social History Household Members Other:: Housing: House Alcohol intake: never Patient Tobacco Use Status: Never used Tobacco e-Cigarette/Vaping Use: Never Used service: No Current occupational status: employed Cognitive needs: No Hearing needs: No Vision needs: No Questionnaire PHQ-9 Over the last 2 weeks, how often have you been bothered by any of the following problems? 1. Little interest or pleasure in doing things: not at all 2. Feeling down, depressed, or hopeless: not at all 3. Trouble falling or staying asleep, or sleeping too much: not at all 4. Feeling tired or having little energy: not at all 5. Poor appetite or overeating: not at all 6. Feeling bad about yourself - or that you are a failure or have let yourself or your family down: not at all 7. Trouble concentrating on things, such as reading the newspaper or watching television: not at all 8. Moving or speaking so slowly that other people could have noticed. Or the opposite - being so fidgety or restless that you have been moving around a lot more than usual: not at all 9. Thoughts that you would be better off or of hurting yourself in some way: not at all Total score: 0 Depression Screening Interpretation: Negative Depression Screening Done: Yes 22075 - PHQ-9 Billing: Yes Source: Developed by Drs. Sancho Hull, Alanna Kong, Oneil Heard and colleagues, with an educational shell from [employer]. Thrive Questionnaire Date Thrive assessed: 10/28/24 I am a: Patient What is your living situation today?: I have a steady place to live Within the past 12 months, did the food you bought not last and you didn't have the money to get more?: Never true Within the past 12 months, did you worry whether your food would run out before you got money to buy more?: Never true Do you have trouble paying for medicines?: No Do you have trouble getting transportation to medical appointments?: No Do you have trouble paying your heating and electricity bill?: No Do you have trouble taking care of your child, family member or friend?: No Do you have trouble with day-to-day activities such as bathing, preparing meals, shopping, managing finances, etc.?: No Are you currently unemployed and looking for a job?: No Are you interested in more education?: No Please select the resources that you would like help with: None Currently or been in a relationship where the following occur: No concerns reported THRIVE Score: 0 AUDIT C Alcohol Use Questionnaire (AUDIT-C) 1. How often do you have a drink containing alcohol?: Never 3. How often do you have six or more drinks on one occasion?: Never Total Score: 0 ENRIQUE-7 AMB Questionnaire ENRIQUE-7 Date ENRIQUE - 7 assessed: 10/28/24 Feeling nervous, anxious, or on edge: 0 = Not at all Not being able to stop or control worryin = Not at all Worrying too much about different things: 0 = Not at all Trouble relaxin = Not at all Being so restless that it is hard to sit still: 0 = Not at all Becoming easily annoyed or irritable: 0 = Not at all Feeling afraid as if something awful might happen: 0 = Not at all Total ENRIQUE-7 score (0-4 normal; 5-9 mild; 10-14 moderate; 15-21 severe): 0 Source: Developed by Drs. Sancho Hull, Alanna Kong, Oneil Heard and colleagues, with an educational shell from [employer]. Review of Systems Const All systems reviewed & are unremarkable except as noted in HPI and below Eyes Reports no additional complaints ENT Reports no additional complaints Card Reports no additional complaints Resp Reports no additional complaints GI Reports no additional complaints Reports no additional complaints Physical exam (Primary Care) Vital Signs: Last Vital Signs Temp 98.6 F 10/28/24 13:00 Pulse 85 10/28/24 13:00 Resp 18 10/28/24 13:00 BP 128/76 10/28/24 13:00 Pulse Ox 97 10/28/24 13:00 Oxygen Delivery Method Room Air 10/28/24 13:00 BMI result Body Mass Index 36.3 Tobacco/Smoking Status: Tobacco use Status Tobacco use date assessed 10/28/24 10/28/24 13:03 Patient Tobacco Use Status Never used Tobacco 10/28/24 13:03 e-Cigarette/Vaping Use Never Used 10/28/24 13:00 PHQ-9: PHQ-9 Score PHQ-9: Total score 0 10/28/24 13:03 Depression Screening Interpretation: Negative Thrive Assessment: Date of Thrive Assessment Date Thrive assessed 10/28/24 10/28/24 13:00 Currently or been in a relationship where the following occur: No concerns reported Const General: no acute distress HENMT Head: Yes normal to inspection Face and sinus: Yes normal facial exam Mouth: Normal oral and palatal mucosa present Throat: Yes posterior oropharynx normal Eyes General: appearance normal, both eyes and all related structures Neck Neck: Yes no lymphadenopathy and Yes supple Resp Effort & Inspection: normal respiratory effort Auscultation: clear to auscultation bilaterally Cardio Rhythm: regular rhythm Heart sounds: S1 normal heart sound present and S2 normal heart sound present GI Inspection: Yes normal to inspection Palpation (GI): Soft to palpation Percussion: Yes normal to percussion Auscultation: normal bowel sounds Coding Level of Care Code Est Pt Prev Care 40-64y(57290) Diagnoses HTN (hypertension) I10 Hypothyroidism E03.9 Annual physical exam Z00.00 Additional Codes PHQ-9 - 83553 - PHQ-9 Billing: Yes ([id number]) Assessment & Plan Assessment & Plan (1) HTN (hypertension): Code(s): I10 - Essential (primary) hypertension Category: Medical Plan: Continue current medications (2) Hypothyroidism: Code(s): E03.9 - Hypothyroidism, unspecified Category: Medical Plan: Continue Synthroid obtain ultrasound of the thyroid (3) Annual physical exam: Code(s): Z00.00 - Encounter for general adult medical examination without abnormal findings Category: Medical Plan: Well-balanced diet regular physical activity weight loss discussed with the patient she is up-to-date with the Pap smear by nurse obgyn mammogram and had negative Cologuard in 2022 but refused to have a colonoscopy Orders: Orders US thyroid Today E03.9 - Hypothyroidism, unspecified Comprehensive Rillito. Panel Fast 1 Year E03.9 - Hypothyroidism, unspecified, I10 - Essential (primary) hypertension, Z00.00 - Encounter for general adult medical examination without abnormal findings Lipid Panel 1 Year E03.9 - Hypothyroidism, unspecified, I10 - Essential (primary) hypertension, Z00.00 - Encounter for general adult medical examination without abnormal findings TSH reflex Free T4 1 Year E03.9 - Hypothyroidism, unspecified, I10 - Essential (primary) hypertension, Z00.00 - Encounter for general adult medical examination without abnormal findings Complete Blood Count Auto Diff 1 Year E03.9 - Hypothyroidism, unspecified, I10 - Essential (primary) hypertension, Z00.00 - Encounter for general adult medical examination without abnormal findings Medications: Refilled amlodipine-benazepril 5-20 mg 1 cap PO DAILY 90 caps 3RF Synthroid (levothyroxine) 125 mcg PO DAILY 90 tabs 3RF NS
== END 2024-10-28 14:08 | disposition home or self-care (01) ==
PROVIDERS: PCP Internal Medicine; Visit Provider Internal Medicine
DX: I10 Essential (primary) hypertension (principal); E03.9 Hypothyroidism, unspecified; Z00.00 Encounter for general adult medical examination without abnormal findings

== ENCOUNTER 2024-10-28 12:59 | Outpatient (REF) | payer BC, SELFPAY ==
[2024-10-28 16:19] LABS: Appearance Urine Cloudy; Color Urine Orange; Glucose Urine UA Negative (Negative); Leukocyte Esterase Urine Trace (Negative); Nitrite Urine Negative (Negative); PH 5.5 (5.0-9.0); Specific Gravity - Urine >= 1.030 (1.005-1.025); UMIC TRIGGER UA YES; Urine Blood Large (3+) (Negative); Urine Ketones Negative (Negative); Urine Protein 30 (1+) mg/dL (Neg-Trace)
[2024-10-28 16:21] LABS: MANUAL DIFF FLAG NO
[2024-10-28 16:22] LABS: Bacteria Urine None Seen (None Seen); Hyaline Casts Urine 0-2 /LPF (0-2); RBC Urine >20 /HPF (0-2); WBC Urine 21-50 /HPF (0-5)
[2024-10-28 16:28] LABS: Basophils Absolute Auto 0.1 X10*3/uL (0.0-0.2); Basophils Percent Auto 0.6 % (0-2); Eosinophils Absolute Auto 0.3 X10*3/uL (0.0-0.4); Eosinophils Percent Auto 3.6 % (0-4); Hematocrit 40.3 % (37.0-47.0); Hemoglobin 13.7 g/dl (12.0-16.0); Imm Gran Abs Auto 0.02 X10*3/uL (0.00-0.03); Imm Gran Pct Auto 0.2 % (0.0-0.4); Lymphocytes Absolute Auto 2.4 X10*3/uL (1.2-4.9); Mean Corpuscular Hemoglobin 28.5 pg (27.0-33.0); Mean Corpuscular Volume 83.8 fL (80.0-98.0); Mean Platelet Volume 11.4 fL (9.4-12.3); Monocytes Absolute Auto 0.6 X10*3/uL (0.1-1.2); Monocytes Percent Auto 7.4 % (2-11); Neutrophils Absolute Auto 4.7 x10*3/uL (2.0-8.3); Neutrophils Percent Auto 58.2 % (45-73); Platelet Count 300 X10*3/uL (160-400); Red Blood Count 4.81 X10*6/uL (4.20-5.50); Red Cell Distribution Width 13.2 % (11.0-16.0); White Blood Count 8.1 X10*3/uL (4.8-10.8)
[2024-10-28 16:48] LABS: Alanine Aminotransferase 15 U/L (0-31); Albumin Level 4.6 g/dL (3.5-5.0); Alkaline Phosphatase 75 U/L (39-117); Anion Gap 11 (12-20); Aspartate Amino Transferase 21 U/L (5-31); Bilirubin Total 0.7 mg/dL (0.0-1.0); Blood Urea Nitrogen 12 mg/dL (9-16); Calcium 9.5 mg/dL (8.4-10.2); Carbon Dioxide 23 mmol/L (22-29); Chloride 107 mmol/L (96-108); Cholesterol 199 mg/dL (<200); Estimated Glomerular Filt Rate > 60; Glucose Fasting 88 mg/dL (60-99); HDL Cholesterol 48 mg/dL (>40); LDL Cholesterol Calculated 121 mg/dL (<100); Potassium 3.8 mmol/L (3.3-5.1); Sodium 137 mmol/L (135-145); Total Protein 7.9 g/dL (6.5-8.0); Triglycerides 150 mg/dL (<150)
[2024-10-28 16:57] LABS: TSH reflex Free T4 2.76 uIU/mL (0.32-4.0); Vitamin D 25-OH Total 69.1 ng/mL (>30)
[2024-10-29 12:38] LABS: Triiodothyronine T3 Free 3.1 pg/mL (2.3-4.2)
== END 2024-10-28 13:00 | disposition home or self-care (01) ==
LOC: HO.HMGCLDS 12:59
PROVIDERS: PCP Internal Medicine; Visit Provider Internal Medicine
DX: Z00.00 Encounter for general adult medical examination without abnormal findings (principal); E03.9 Hypothyroidism, unspecified; I10 Essential (primary) hypertension
CPT/HCPCS: 36415; 80053; 80061; 81001; 82306; 84443; 84481; 85025; 96127

== ENCOUNTER 2024-11-05 08:27 | Outpatient (REF) | payer BC, SELFPAY ==
[2024-11-05 11:32] LABS: Appearance Urine Cloudy; Color Urine Yellow; Glucose Urine UA Negative (Negative); Leukocyte Esterase Urine Large (3+) (Negative); Nitrite Urine Negative (Negative); UMIC TRIGGER UA YES; Urine Blood Negative (Negative); Urine Ketones Negative (Negative); Urine Protein Trace mg/dL (Neg-Trace)
[2024-11-05 11:48] LABS: Bacteria Urine 2+ (None Seen); Hyaline Casts Urine 0-2 /LPF (0-2); RBC Urine 0-2 /HPF (0-2); WBC Urine >50 /HPF (0-5)
== END 2024-11-05 08:28 | disposition home or self-care (01) ==
LOC: HO.HMGCLDS 08:27
PROVIDERS: PCP Internal Medicine; Visit Provider Internal Medicine
DX: Z00.00 Encounter for general adult medical examination without abnormal findings (principal)
CPT/HCPCS: 81001; 87086

== ENCOUNTER 2024-12-03 09:23 | Outpatient (AMB) | payer BC, SELFPAY ==
[2024-12-03 09:45] VITALS: BP 110/72; PULSE 88; RESP 16; TEMP 36.9; O2SAT 97; BMI 36.2
--- NOTE | 2024-12-03 09:45 | AM.OFFWIN_ITS ---
Intake Vital Signs 12/03/24 09:45 Height 5 ft 7 in Weight 231 lb BMI 36.2 BP 110/72 Blood Pressure Location Lt brachial Position Sitting Respiration 16 Pulse 88 Pulse Source Pulse Oximeter Temp 98.5 F Temp Source Oral Pulse Oximetry (%) 97 Oxygen Delivery Method Room Air Intake Visit Reasons: EP SOB, headache, chills Intake Note: Pt is here today c/o SOB, H/A, chills, cough and nasal congestion x2days Patient Tobacco Use Status: Never used Tobacco Allergies No Known Allergies Allergy (Verified 12/03/24 10:06) HPI EP SOB, headache, chills HPI Details Patient presents with complaint of a few days of worsening chest congestion, nasal congestion and cough. She has been feeling feverish but no fevers no known sick contacts [facility] Medical History Normal Pap smear Annual physical exam Hypothyroidism HTN (hypertension) Surgical History No pertinent past surgical history Family History Father No problems noted. Mother No problems noted. Social History Household Members Other:: Housing: House Alcohol intake: never Patient Tobacco Use Status: Never used Tobacco e-Cigarette/Vaping Use: Never Used service: No Current occupational status: employed Cognitive needs: No Hearing needs: No Vision needs: No Review of Systems Const Reports chills, Reports fatigue, Denies fever(s), Reports headache(s) and Denies weakness ENT Denies dizziness and Reports headache(s) Card Denies chest pain, Denies lightheadedness, Denies dyspnea and Denies other (Palpitations) Resp Reports chest congestion, Reports cough, Denies dyspnea, Denies wheezing and Denies other ( shortness of breath) Musc Denies numbness and Denies tingling Neuro Denies dizziness, Reports headache(s), Denies numbness, Denies tingling, Denies paresthesias and Denies weakness Psych Denies anxiety and Denies depression Endo Reports fatigue Aller/Immun Denies wheezing Physical Exam Vital Signs: Last Vital Signs Temp 98.5 F 12/03/24 09:45 Pulse 88 03/22/25 09:45 Resp 16 12/03/24 09:45 BP 110/72 12/03/24 09:45 Pulse Ox 97 12/03/24 09:45 Oxygen Delivery Method Room Air 12/03/24 09:45 BMI result Body Mass Index 36.2 Const Other: appears mildly ill General: no acute distress and well developed Nutritional Appearance: well nourished Orientation/consciousness: patient oriented x3 HEENT Other: significant nasal congestion without blood or pus flushing of face Head: Yes normocephalic and Yes atraumatic Eyes General: appearance normal, both eyes and all related structures Pupils: Equal, round and reactive pupils present EOM: EOMs intact bilaterally Resp Other: coarse breath sounds but otherwise clear to auscultation bilaterally Effort & Inspection: normal respiratory effort Auscultation: clear to auscultation bilaterally Cardio Rate: regular rate Rhythm: regular rhythm Heart sounds: S1 normal heart sound present, S2 normal heart sound present, no gallops, no murmurs and no rubs Neuro General: patient oriented x3 and gait normal Cranial nerves: Yes Equal, round and reactive pupils present Psych Affect: normal affect Assessment & Plan Assessment & Plan (1) Viral illness: Code(s): B34.9 - Viral infection, unspecified Plan: nasal and chest congestion. No evidence of sinus infection or pneumonia likely viral illness Viral illness There is no antibiotic medication for viruses. They must run their course. Most average 5-7 days but 7-10 days is not uncommon and up to 14 days is still possible. A cough is often the last symptom to resolve and this can last for weeks in some cases. Rest Hydrate well - Drink plenty of fluids. Especially water. Tylenol or ibuprofen for muscle aches, headache, fever/discomfort Can use [id number] medications for cough such as Delsym or DayQuil. Prescription cough medicines have been shown to be no better. can not rule out COVID/ flu /RSV - nasal swab sent to lab Orders: Orders SARS-CoV2/FLU/RSV Today B34.9 - Viral infection, unspecified, Z20.822 - Contact with and (suspected) exposure to COVID-19 Coding Level of Care Code Est Pt Level 3 (32713) Diagnoses Viral illness B34.9
== END 2024-12-03 10:50 | disposition home or self-care (01) ==
PROVIDERS: PCP Internal Medicine; Visit Provider Family Medicine
DX: B34.9 Viral infection, unspecified (principal)

== ENCOUNTER 2024-12-03 09:23 | Outpatient (REF) | payer BC, SELFPAY ==
[2024-12-03 14:41] LABS: Influenza A PCR NEGATIVE (Negative); Influenza B PCR POSITIVE (Negative); Resp Syncy Virus RNA Qual PCR NEGATIVE (Negative); SARS COV2 PCR INHOUSE NEGATIVE (Negative)
== END 2024-12-03 09:24 | disposition home or self-care (01) ==
LOC: HO.LAB 09:23
PROVIDERS: Family Medicine; PCP Internal Medicine
DX: B34.9 Viral infection, unspecified (principal); R05.8 Other specified cough; Z20.822 Contact with and (suspected) exposure to COVID-19
CPT/HCPCS: 0241U

== ENCOUNTER 2025-02-22 09:58 | Outpatient (AMB) | payer BC, SELFPAY ==
[2025-02-22 10:39] VITALS: BP 140/86; PULSE 81; TEMP 36.7; O2SAT 97; BMI 35.2
--- NOTE | 2025-02-22 10:39 | MHC.OFFWIV ---
Intake Vital Signs 02/22/25 10:39 Height 5 ft 7 in Weight 225 lb BMI 35.2 BP 140/86 H Blood Pressure Location Rt brachial Position Sitting Pulse 81 Pulse Source Pulse Oximeter Temp 98.1 F Temp Source Oral Pulse Oximetry (%) 97 Oxygen Delivery Method Room Air Intake Visit Reasons: EP-sciatiaca Intake Note: Pt presents to the office today for c/o sciatic pain that is in her right buttocks that radiates down her right leg x1 week. Pt states she also has some right sided neck pain that comes and goes. Patient Tobacco Use Status: Never used Tobacco Allergies No Known Allergies Allergy (Verified 02/22/25 10:41) HPI HPI Comments History of Present Illness Details History of Present Illness - The patient is a 49-year-old female presenting with what she thinks is sciatica. - The patient reports the onset of back pain approximately one week ago, initially presenting as discomfort in the right lower back, which subsequently radiated to the front and down the right leg. - The pain is described as a shooting nerve pain, exacerbated by certain movements and alleviated by sitting upright with back support. - The patient has attempted self-management with [id number] naproxen and lidocaine patches, which provided moderate, temporary relief but the pain persists daily. - No associated symptoms of bowel or bladder dysfunction, weakness, or numbness in the legs were reported. - The patient also reports musculoskeletal neck pain, likely related to posture and work habits, with occasional stiffness and muscle tightness. - Family history includes kidney issues, with the patient's mother having a single functioning kidney and a sister with kidney stones. Physical Exam General: Cooperative, healthy appearing, comfortable, no acute distress and well developed Orientation: Patient oriented x3 Limitations: No limitations Head: Normal to inspection Ears: Hearing grossly normal bilaterally Nose: Normal External nose present Face and sinus: Normal facial exam Eyes: Appearance normal, both eyes and all related structures Neck: Normal visual inspection and Yes full ROM, but reports pain on the right side Respiratory: Normal respiratory effort and able to speak in complete sentences. Back/spine: no TTP cervical, thoracic or lumbar spine, no TTP throughout back, negative CVA bilaterally Skin: No rashes or lesions noted Neuro: Patient oriented x3 Extremities: Normal to inspection, + straight leg right side [facility] Medical History Normal Pap smear Annual physical exam Hypothyroidism HTN (hypertension) Surgical History No pertinent past surgical history Family History Father No problems noted. Mother No problems noted. Social History Household Members Other:: Housing: House Alcohol intake: never Patient Tobacco Use Status: Never used Tobacco e-Cigarette/Vaping Use: Never Used service: No Current occupational status: employed Cognitive needs: No Hearing needs: No Vision needs: No Review of Systems Const All systems reviewed & are unremarkable except as noted in HPI and below Physical Exam Vital Signs: Last Vital Signs Temp 98.1 F 02/22/25 10:39 Pulse 81 02/22/25 10:39 BP 140/86 H 02/22/25 10:39 Pulse Ox 97 02/22/25 10:39 Oxygen Delivery Method Room Air 02/22/25 10:39 BMI result Body Mass Index 35.2 Assessment & Plan Assessment & Plan (1) Sciatica: Code(s): M54.30 - Sciatica, unspecified side Qualifiers: Laterality: right Qualified Code(s): M54.31 - Sciatica, right side Plan: Plan - Initiate treatment with prednisone for sciatica, with instructions to take in the morning to avoid insomnia. - Prescribe cyclobenzaprine as a muscle relaxant for neck pain, to be used if symptoms persist after prednisone treatment. - Advise against the use of NSAIDs concurrently with prednisone to prevent gastrointestinal complications. - Recommend monitoring for any signs of kidney stones, such as hematuria, fever or severe pain, and advise seeking emergency care if these occur. Unlikely as negative CVA bilaterally. Patient was informed and verbally consented to the use of an ambient scribe for clinic note documentation during this visit. (2) Cervicalgia: Code(s): M54.2 - Cervicalgia Plan: as above Medications: New prednisone 50 mg PO QAM 5 tabs 0RF cyclobenzaprine 5 mg PO Q8H PRN 15 tabs 0RF Muscle Spasm Coding Level of Care Code Est Pt Level 3 (70949) Diagnoses Sciatica of right side M54.31 Laterality: right Cervicalgia M54.2
== END 2025-02-22 11:14 | disposition home or self-care (01) ==
PROVIDERS: PCP Internal Medicine; Visit Provider Physician Assistant
DX: M54.31 Sciatica, right side (principal); M54.2 Cervicalgia

== ENCOUNTER → 2025-02-22 09:58 | Outpatient (BNVA) | payer BC, SELFPAY | PROVIDERS: PCP Internal Medicine; Visit Provider Physician Assistant | DX: Z13.89 Encounter for screening for other disorder (principal) ==

== ENCOUNTER 2025-03-08 07:12 | Outpatient (REF) | payer BC, SELFPAY ==
[2025-03-08 10:37] LABS: Appearance Urine Clear; Color Urine Yellow; Glucose Urine UA Negative (Negative); Leukocyte Esterase Urine Small (1+) (Negative); Nitrite Urine Negative (Negative); Specific Gravity - Urine >= 1.030 (1.005-1.025); UMIC TRIGGER UA YES; Urine Blood Negative (Negative); Urine Ketones Negative (Negative); Urine Protein Negative (Neg-Trace)
[2025-03-08 10:43] LABS: Bacteria Urine Trace (None Seen); Hyaline Casts Urine 0-2 /LPF (0-2); RBC Urine 0-2 /HPF (0-2)
[2025-03-08 10:56] LABS: Alanine Aminotransferase 18 U/L (0-31); Albumin Level 4.5 g/dL (3.5-5.0); Alkaline Phosphatase 67 U/L (39-117); Anion Gap 11 (12-20); Aspartate Amino Transferase 19 U/L (5-31); Bilirubin Total 0.5 mg/dL (0.0-1.0); Blood Urea Nitrogen 15 mg/dL (9-16); Calcium 9.3 mg/dL (8.4-10.2); Carbon Dioxide 21 mmol/L (22-29); Chloride 111 mmol/L (96-108); Estimated Glomerular Filt Rate > 60; Glucose Random 106 mg/dL (60-115); Potassium 4.2 mmol/L (3.3-5.1); Sodium 139 mmol/L (135-145); Total Protein 7.1 g/dL (6.5-8.0)
[2025-03-08 11:01] LABS: TSH reflex Free T4 3.86 uIU/mL (0.32-4.0)
== END 2025-03-08 07:13 | disposition home or self-care (01) ==
LOC: HO.HMGCLDS 07:12
PROVIDERS: PCP Internal Medicine; Visit Provider Internal Medicine
DX: R10.9 Unspecified abdominal pain (principal); E03.9 Hypothyroidism, unspecified
CPT/HCPCS: 36415; 80053; 81001; 84443; 87086

== ENCOUNTER 2025-03-10 07:59 | Outpatient (AMB) | payer BC, SELFPAY ==
--- NOTE | 2025-03-10 08:04 | A.OFFPC_ITS ---
Vital Signs 03/10/25 08:05 Height 5 ft 7 in Weight 225 lb BMI 35.2 BP 118/76 Blood Pressure Location Lt brachial Position Sitting Respiration 18 Pulse 79 Pulse Source Pulse Oximeter Temp 98.2 F Temp Source Oral Pulse Oximetry (%) 98 Oxygen Delivery Method Room Air Intake Visit Reasons: Follow up after walk in Intake Note: Pt is here today for a follow up visit after walk in. Pt states that she is still having R foot burning sensation and has been having abdominal bloating. Allergies No Known Allergies Allergy (Verified 03/10/25 08:08) Medication List - Last Reconciled 03/10/25 by Corin Rea MD amlodipine-benazepril 5-20 mg 1 cap PO DAILY cyclobenzaprine 5 mg PO Q8H PRN Synthroid (levothyroxine) 125 mcg PO DAILY NS Tobacco use date assessed: 03/10/25 Dental Screening Dental Screen Date: 03/10/25 Did you have a dental visit in the last 12 months?: Yes Did you have a dental problem in the last 6 months where you did not have access to dental care?: No Was dental information given to patient?: Patient has dentist HPI Follow up after walk in HPI Details Patient presents for the follow-up walk and visit. She complains of 3 weeks of lower back discomfort worse when sitting for long time. The pain occasionally radiates to right lower extremity. Patient also complains right heel pain worse when starting to walk. Patient denies any weakness, numbness in extremities, change in bowel or bladder function. she complains of chronic lower abdominal bloating and constipation, no dysuria, hematochezia melena nausea vomiting weight loss. Patient had negative Cologuard in October 2022 [facility] Medical History Normal Pap smear Annual physical exam Hypothyroidism HTN (hypertension) Surgical History No pertinent past surgical history Family History Father No problems noted. Mother No problems noted. Social History Household Members Other:: Housing: House Alcohol intake: never Patient Tobacco Use Status: Never used Tobacco e-Cigarette/Vaping Use: Never Used service: No Current occupational status: employed Cognitive needs: No Hearing needs: No Vision needs: No Questionnaire PHQ-9 Over the last 2 weeks, how often have you been bothered by any of the following problems? 1. Little interest or pleasure in doing things: not at all 2. Feeling down, depressed, or hopeless: not at all 3. Trouble falling or staying asleep, or sleeping too much: not at all 4. Feeling tired or having little energy: not at all 5. Poor appetite or overeating: not at all 6. Feeling bad about yourself - or that you are a failure or have let yourself or your family down: not at all 7. Trouble concentrating on things, such as reading the newspaper or watching television: not at all 8. Moving or speaking so slowly that other people could have noticed. Or the opposite - being so fidgety or restless that you have been moving around a lot more than usual: not at all 9. Thoughts that you would be better off or of hurting yourself in some w ay: not at all Total score: 0 Depression Screening Interpretation: Negative Depression Screening Done: Yes 19517 - PHQ-9 Billing: Yes Source: Developed by Drs. Sancho Hull, Alanna Kong, Oneil Heard and colleagues, with an educational shell from [employer]. Thrive Questionnaire Date Thrive assessed: 10/28/24 I am a: Patient What is your living situation today?: I have a steady place to live Within the past 12 months, did the food you bought not last and you didn't have the money to get more?: Never true Within the past 12 months, did you worry whether your food would run out before you got money to buy more?: Never true Do you have trouble paying for medicines?: No Do you have trouble getting transportation to medical appointments?: No Do you have trouble paying your heating and electricity bill?: No Do you have trouble taking care of your child, family member or friend?: No Do you have trouble with day-to-day activities such as bathing, preparing meals, shopping, managing finances, etc.?: No Are you currently unemployed and looking for a job?: No Are you interested in more education?: No Please select the resources that you would like help with: None Currently or been in a relationship where the following occur: No concerns reported THRIVE Score: 0 AUDIT C Alcohol Use Questionnaire (AUDIT-C) 1. How often do you have a drink containing alcohol?: Never 3. How often do you have six or more drinks on one occasion?: Never Total Score: 0 ENRIQUE-7 AMB Questionnaire ENRIQUE-7 Date ENRIQUE - 7 assessed: 10/28/24 Source: Developed by Drs. Sancho Hull, Alanna Kong, Oneil Heard and colleagues, with an educational shell from [employer]. Review of Systems Const All systems reviewed & are unremarkable except as noted in HPI and below ENT Reports no additional complaints Card Reports no additional complaints Resp Reports no additional complaints GI Reports no additional complaints Reports no additional complaints Physical exam (Primary Care) Vital Signs: Last Vital Signs Temp 98.2 F 03/10/25 08:05 Pulse 79 03/10/25 08:05 Resp 18 03/10/25 08:05 BP 118/76 03/10/25 08:05 Pulse Ox 98 03/10/25 08:05 Oxygen Delivery Method Room Air 03/10/25 08:05 BMI result Body Mass Index 35.2 Tobacco/Smoking Status: Tobacco use Status Tobacco use date assessed 03/10/25 03/10/25 08:10 Patient Tobacco Use Status Never used Tobacco 03/10/25 08:10 e-Cigarette/Vaping Use Never Used 03/10/25 08:10 PHQ-9: PHQ-9 Score PHQ-9: Total score 0 03/10/25 08:18 Depression Screening Interpretation: Negative Thrive Assessment: Date of Thrive Assessment Date Thrive assessed 10/28/24 03/10/25 08:10 Currently or been in a relationship where the following occur: No concerns reported Const General: no acute distress HENMT Head: Yes normal to inspection Face and sinus: Yes normal facial exam Mouth: Normal oral and palatal mucosa present Throat: Yes posterior oropharynx normal Eyes General: appearance normal, both eyes and all related structures Neck Neck: Yes no lymphadenopathy and Yes supple Resp Effort & Inspection: normal respiratory effort Auscultation: clear to auscultation bilaterally Cardio Rhythm: regular rhythm Heart sounds: S1 normal heart sound present and S2 normal heart sound present GI Inspection: Yes normal to inspection Palpation (GI): Soft to palpation Percussion: Yes normal to percussion Auscultation: normal bowel sounds Back/Spine/Pelvis Other: Paraspinal tenderness lower lumbar region right more than left, straight leg rising 90 degrees bilaterally deep tendon reflexes 2+ bilaterally motor strength 5/5 bilaterally, reproducible tenderness in the right plantar region, no soft tissue swelling Coding Level of Care Code Est Pt Level 4 (62533) Diagnoses Lower back pain M54.50 HTN (hypertension) I10 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 Constipation K59.00 Additional Codes PHQ-9 - 30814 - PHQ-9 Billing: Yes ([id number]) Assessment & Plan Assessment & Plan (1) Lower back pain: Code(s): M54.50 - Low back pain, unspecified Category: Medical Plan: For chronic lower back pain referred to physical therapy (2) HTN (hypertension): Code(s): I10 - Essential (primary) hypertension Category: Medical Plan: Continue current medications (3) Fibromatosis of plantar fascia: Code(s): M72.2 - Plantar fascial fibromatosis Category: Medical Plan: Patient was given stretching exercises was advised to wear proper footwear (4) Constipation: Code(s): K59.00 - Constipation, unspecified Category: Medical Plan: Increasing fiber and fluid intake discussed with the patient. She was advised to take Citrucel and MiraLax as needed. If the symptoms persist patient will be referred to GI for colonoscopy Orders: Orders PT Evaluation and Treatment Today M54.50 - Low back pain, unspecified
[2025-03-10 08:05] VITALS: BP 118/76; PULSE 79; RESP 18; TEMP 36.8; O2SAT 98; BMI 35.2
== END 2025-03-10 09:11 | disposition home or self-care (01) ==
LOC: HO.HMCC 07:59
PROVIDERS: PCP Internal Medicine; Visit Provider Internal Medicine
DX: M54.50 Low back pain, unspecified (principal); I10 Essential (primary) hypertension; M72.2 Plantar fascial fibromatosis; K59.00 Constipation, unspecified

== ENCOUNTER → 2025-03-10 07:59 | Outpatient (BNVA) | payer BC, SELFPAY | PROVIDERS: PCP Internal Medicine; Visit Provider Internal Medicine | DX: I10 Essential (primary) hypertension (principal); M54.50 Low back pain, unspecified; M72.2 Plantar fascial fibromatosis; K59.00 Constipation, unspecified | CPT/HCPCS: 96127 ==

== ENCOUNTER 2025-06-16 08:36 | Outpatient (REF) | payer BC, SELFPAY ==
[2025-06-16 10:19] LABS: Appearance Urine Clear; Glucose Urine UA Negative (Negative); PH 6.0 (5.0-9.0); Specific Gravity - Urine 1.020 (1.005-1.025); UMIC TRIGGER UA YES
== END 2025-06-16 08:37 | disposition home or self-care (01) ==
LOC: HO.HMGCLDS 08:36
PROVIDERS: PCP Internal Medicine; Visit Provider Internal Medicine
DX: I10 Essential (primary) hypertension (principal); E03.9 Hypothyroidism, unspecified
CPT/HCPCS: 36415; 81001; 84443